=== PATIENT | female | born 1990 | race Caucasian/White ===

== ENCOUNTER → 2016-11-26 | Emergency (ER) | payer OTHER ==
[~2016-11-26] MED LIST: ALBUTEROL SULF8.5 GM IH; BACTRIM,SEPT1 TABLET PO; BUSPAR10 MG PO; CIPRO500 MG PO; Chromagen, Feogen, M PO; FLUOXETINE HCL10 MG PO; LIDOCAINE20 MG/1 M5 PO; MACROBID100 MG PO; MAGIC MOUTHWASH1 ML MM; MOTRIN800 MG PO; Motrin PO; NAPROSYN500 MG PO; Ortho Cyclen 28 PO; PERCOCET 5/31 TABLET PO; SUBOXONE 8 M1 TABLET PO; VALACYCLOVIR500 MG PO; VIBRAMYCIN100 MG PO; WELLBUTRIN XL300 MG PO
[2016-11-26 14:29] LABS: EOSINOPHIL (%) 0.4 % (0-5); EOSINOPHIL COUNT 0.1 K/uL (0-0.3); HEMATOCRIT 37.8 % (36.0-46.0); IMMATURE GRANULOCYTE (%) 0.7 % (0.0-0.7); IMMATURE GRANULOCYTE COUNT 0.1 K/uL; INSTRUMENT ABS NEUTROPHIL CT 8.2 K/uL; LYMPHOCYTE COUNT 3.1 K/uL (1.0-2.8); MCH 31.3 PG (29.0-34.0); MCHC 33.3 G/DL (30.0-36.0); MONOCYTE (%) 4.8 % (3-12); MONOCYTE COUNT 0.6 K/uL (0-0.8); NEUTROPHIL (%) 67.8 % (45-76); NEUTROPHIL COUNT 8.2 K/uL (1.8-6.4); PLATELET COUNT 219 K/uL (156-360); RBC DIS.WIDTH-CV 11.9 % (11.8-14.6); RBC DIS.WIDTH-SD 41.6 % (39-53); RED BLOOD COUNT 4.02 M/uL (3.80-5.20); WHITE BLOOD COUNT 12.1 K/uL (4.1-10.2)
[2016-11-26 14:41] LABS: AMYLASE 40 IU/L (1-118); CHLORIDE 101 mEq/L (99-109); POTASSIUM 3.9 mEq/L (3.7-5.4); SODIUM 137 mEq/L (136-147)
[2016-11-26 14:43] LABS: GLUCOSE 95 mg/dL (70-99)
[2016-11-26 14:45] LABS: ANION GAP 18 MEQ/L (2-14)
[2016-11-26 14:46] LABS: SERUM ETHYL ALCOHOL 182 mg/dL
[2016-11-26 14:47] LABS: GFR ESTIMATE (CALCULATED) 45 mL/min/
[2016-11-26 14:48] LABS: UREA NITROGEN (BUN) 22 mg/dL (9-23)
[2016-11-26 14:50] LABS: LIPASE 69 U/L (1.0-51.0); PROTHROMBIN TIME 10.6 (9.2-11.2); PTT 25.1 (25-32)
[2016-11-26 14:56] LABS: QUANTITATIVE HCG < 4.0 MIU/ML
[2016-11-26 15:57] LABS: ADD MIUA? YES; BILIRUBIN NEGATIVE; BLOOD LARGE; COLOR YELLOW ((YELLOW)); GLUCOSE (STRIP) NEGATIVE; KETONES NEGATIVE; LEUKOCYTES NEGATIVE; NITRITE NEGATIVE; PROTEIN (STRIP) 100; SPECIFIC GRAVITY 1.045 (1.000-1.030); UROBILINOGEN 0.2 MG/DL (0.2-1.0)
[2016-11-26 16:07] LABS: ADD MEDTOX COMMENT Y; AMPHETAMINE NEGATIVE (500 ng/mL); BARBITURATES NEGATIVE (200 ng/mL); BENZODIAZEPINES NEGATIVE (150 ng/mL); COCAINE PRESUMPTIVE POSITIVE (150 ng/mL); INTERNAL CONTROLS VALID? YES; METHADONE NEGATIVE (200 ng/mL); METHAMPHETAMINE NEGATIVE (500 ng/mL); OPIATES (MORPHINE) NEGATIVE (100 ng/mL); OXYCODONE NEGATIVE (100 ng/mL); PHENCYCLIDINE NEGATIVE (25 ng/mL); PROPOXYPHENE NEGATIVE (300 ng/mL); THC CANNABINOIDS NEGATIVE (50 ng/mL); TRICYCLIC ANTIDEPRESSANTS NEGATIVE (300 ng/mL)
[2016-11-26 16:11] LABS: RED BLOOD CELLS TNTC /HPF (0-5)
[2016-11-26 16:12] LABS: BACTERIA RARE /HPF; CASTS PRESENT /LPF; CRYSTALS NONE SEEN; EPITHELIAL CELLS RARE /HPF; MUCUS RARE /LPF; UCUL ADDED? NO
[2016-11-26 16:13] LABS: FINE GRANULAR CASTS 0-5 /LPF; HYALINE CASTS 0-5 /LPF
[2016-11-26 16:47] VITALS: BP 128/75
== END | disposition home or self-care (01) ==
LOC: TRA 14:11
PROVIDERS: Emergency Medicine
PROC: 3E0234Z Introduction of Serum, Toxoid and Vaccine into Muscle, Percutaneous Approach (ICD-10-PCS; principal; 2016-11-26)
DX: F10.129 Alcohol abuse with intoxication, unspecified (principal); Y90.6 Blood alcohol level of 120-199 mg/100 ml; V27 Motorcycle rider injured in collision with fixed or stationary object; S40.812A Abrasion of left upper arm, initial encounter; S40.811A Abrasion of right upper arm, initial encounter; S80.812A Abrasion, left lower leg, initial encounter; S80.811A Abrasion, right lower leg, initial encounter; N39.0 Urinary tract infection, site not specified; F14.10 Cocaine abuse, uncomplicated; Z23 Encounter for immunization; M54.6 Pain in thoracic spine
CPT/HCPCS: 70450; 70486; 71260; 72125; 72129; 72132; 73610; 73630; 74177; 80048; 81003; 82150; 83690; 84702; 84999; 85025; 85610; 85730; 86900; 86901; 99281; 99285; G0480; J3010; J7030

== ENCOUNTER 2016-12-03 20:07 | Emergency (ER) | payer OTHER ==
[~2016-12-03] VITALS: Ht 165.1 cm; Wt 71.5 kg
[~2016-12-03 20:07] MED LIST changes: -PERCOCET 5/31 TABLET PO
[2016-12-03] MEDS ORDERED: PERCOCET 5/31 TABLET PO (21:50)
[2016-12-03] MEDS ORDERED: MOTRIN800 MG PO (21:50)
[2016-12-03 22:17] VITALS: BP 125/77
== END 2016-12-03 22:18 | disposition home or self-care (01) ==
LOC: EME 20:07
DX: S30.0XXA Contusion of lower back and pelvis, initial encounter (principal); S70.11XA Contusion of right thigh, initial encounter; V28.0XXD Motorcycle driver injured in noncollision transport accident in nontraffic accident, subsequent encounter
CPT/HCPCS: 76882; 99281; 99283

== ENCOUNTER 2017-09-14 07:51 | Inpatient (IN) | payer OTHER ==
[2017-09-14] VITALS (14 sets, daily range): BP systolic 112–149; BP diastolic 56–76
[~2017-09-14] VITALS: Ht 167.6 cm; Wt 90.9 kg
[~2017-09-14 07:51] MED LIST changes: +PERCOCET 5/31 TABLET PO
[2017-09-14] MEDS ORDERED: PRENATAL TABLE1 EAC3 PO (08:29)
[2017-09-14 08:57] LABS: BASOPHIL (%) 0.3 % (0-1); EOSINOPHIL (%) 0.2 % (0-5); HEMATOCRIT 30.2 % (36.0-46.0); IMMATURE GRANULOCYTE (%) 0.7 % (0.0-0.7); LYMPHOCYTE (%) 19.4 % (15-42); LYMPHOCYTE COUNT 2.7 K/uL (1.0-2.8); MCH 31.6 PG (29.0-34.0); MCHC 33.1 G/DL (30.0-36.0); MCV 95.6 FL (83-99); MONOCYTE (%) 4.3 % (3-12); MONOCYTE COUNT 0.6 K/uL (0-0.8); NEUTROPHIL (%) 75.1 % (45-76); NEUTROPHIL COUNT 10.3 K/uL (1.8-6.4); PLATELET COUNT 272 K/uL (156-360); RED BLOOD COUNT 3.16 M/uL (3.80-5.20); WHITE BLOOD COUNT 13.7 K/uL (4.1-10.2)
[2017-09-14 10:13] LABS: AMPHETAMINE NEGATIVE (500 ng/mL); BARBITURATES NEGATIVE (200 ng/mL); BENZODIAZEPINES NEGATIVE (150 ng/mL); BUPRENORPHINE NEGATIVE (10 ng/mL); COCAINE NEGATIVE (150 ng/mL); METHADONE NEGATIVE (200 ng/mL); METHAMPHETAMINE NEGATIVE (500 ng/mL); OPIATES (MORPHINE) NEGATIVE (100 ng/mL); OXYCODONE NEGATIVE (100 ng/mL); PHENCYCLIDINE NEGATIVE (25 ng/mL); PROPOXYPHENE NEGATIVE (300 ng/mL); THC CANNABINOIDS NEGATIVE (50 ng/mL); TRICYCLIC ANTIDEPRESSANTS NEGATIVE (300 ng/mL)
[2017-09-15 06:22] LABS: BASOPHIL (%) 0.2 % (0-1); EOSINOPHIL (%) 0.5 % (0-5); EOSINOPHIL COUNT 0.1 K/uL (0-0.3); HEMATOCRIT 27.3 % (36.0-46.0); HEMOGLOBIN 9.1 G/DL (11.9-15.5); IMMATURE GRANULOCYTE (%) 0.7 % (0.0-0.7); LYMPHOCYTE (%) 19.3 % (15-42); LYMPHOCYTE COUNT 3.4 K/uL (1.0-2.8); MCH 31.9 PG (29.0-34.0); MCHC 33.3 G/DL (30.0-36.0); MCV 95.8 FL (83-99); MONOCYTE (%) 5.6 % (3-12); NEUTROPHIL (%) 73.7 % (45-76); NEUTROPHIL COUNT 12.9 K/uL (1.8-6.4); PLATELET COUNT 250 K/uL (156-360); RBC DIS.WIDTH-CV 13.1 % (11.8-14.6); RBC DIS.WIDTH-SD 46.2 % (39-53); RED BLOOD COUNT 2.85 M/uL (3.80-5.20); WHITE BLOOD COUNT 17.5 K/uL (4.1-10.2)
== END 2017-09-16 12:40 | disposition home or self-care (01) | DRG 775 ==
LOC: LDRP-OP 07:51 → 2WEST 07:52 → LDRP-OP 21:49 → 2WEST 09-16 12:40 → LDRP-OP 10-17 12:59
PROVIDERS: Advanced Practice Midwife
PROC: 3E033VJ Introduction of Other Hormone into Peripheral Vein, Percutaneous Approach (ICD-10-PCS; principal; 2017-09-14)
PROC: 10907ZC Drainage of Amniotic Fluid, Therapeutic from Products of Conception, Via Natural or Artificial Opening (ICD-10-PCS; 2017-09-14)
PROC: 10E0XZZ Delivery of Products of Conception, External Approach (ICD-10-PCS; 2017-09-14)
DX: O26.893 Other specified pregnancy related conditions, third trimester (principal); O26.03 Excessive weight gain in pregnancy, third trimester; O69.81X0 Labor and delivery complicated by cord around neck, without compression, not applicable or unspecified; O99.02 Anemia complicating childbirth; D62 Acute posthemorrhagic anemia; O99.334 Smoking (tobacco) complicating childbirth; F17.200 Nicotine dependence, unspecified, uncomplicated; Z3A.39 39 weeks gestation of pregnancy; Z37.0 Single live birth
CPT/HCPCS: 85025; 87641; J0595; J7120